=== PATIENT | male | born 1995 | race Caucasian/White ===

== ENCOUNTER 2016-10-30 17:34 | Emergency (ER) | payer BC ==
[~2016-10-30] VITALS: Ht 175.2 cm; Wt 88.5 kg
[~2016-10-30 17:34] MED LIST: KEFLEX500 MG PO; MOTRIN600 MG PO
== END 2016-10-30 19:03 | disposition home or self-care (01) ==
LOC: ED 17:34
DX: S01.111A Laceration without foreign body of right eyelid and periocular area, initial encounter (principal); S61.216A Laceration without foreign body of right little finger without damage to nail, initial encounter; W22.8XXA Striking against or struck by other objects, initial encounter; Y93.89 Activity, other specified; Y92.9 Unspecified place or not applicable; Y99.9 Unspecified external cause status

== ENCOUNTER → 2020-03-16 | Outpatient (CLI) | payer OTHER | END | disposition home or self-care (01) | LOC: COVID19 10:44 | PROVIDERS: ATTEND Hospitalist | DX: Z20.828 Contact with and (suspected) exposure to other viral communicable diseases (principal) ==

== ENCOUNTER → 2021-04-03 | Outpatient (CLI) | payer OTHER | END | disposition home or self-care (01) | LOC: COVID19 16:44 | PROVIDERS: ATTEND Internal Medicine | DX: Z20.822 Contact with and (suspected) exposure to COVID-19 (principal) ==

== ENCOUNTER → 2023-09-14 | Outpatient (CLI) | payer BC | END | disposition home or self-care (01) | LOC: US 10:00 | PROVIDERS: ATTEND Surgery | DX: K80.20 Calculus of gallbladder without cholecystitis without obstruction (principal) ==